=== PATIENT | male | born 1965 | race African-American/Black ===

== ENCOUNTER 2018-05-05 19:58 | Emergency (ER) | payer MEDICAID ==
[~2018-05-05] VITALS: Ht 162.6 cm; Wt 50.0 kg
[2018-05-05] MEDS ORDERED: LEVETIRACETAM 500MG PREMIX 100 ML IV ONE (21:15)
[2018-05-05 23:00] LABS: BASOPHILS % 0.7 % (0.0-2.0); EOSINOPHILS % 0.5 % (0.0-5.0); HEMATOCRIT. 39.3 % (42.0-52.0); HEMOGLOBIN. 12.9 g/dL (14.0-18.0); LYMPHOCYTES % 14.3 % (20.0-50.0); MEAN CORPUSCULAR HEMOGLOBIN 26.7 pg (28.0-32.0); MEAN CORPUSCULAR VOLUME 81.4 fL (80.0-94.0); MONOCYTES % 5.1 % (2.0-8.0); NEUTROPHILS % 79.4 % (40.0-76.0); PLATELET 203 x1000/uL (130-400); RED BLOOD CELL COUNT 4.83 mill/uL (4.7-6.1); RED CELL DISTRIBUTION WIDTH 14.1 % (11.6-14.6)
[2018-05-05 23:04] LABS: CHLORIDE 109 mEq/L (98-107)
[2018-05-06 00:02] VITALS: BP 101/62
== END 2018-05-06 00:03 | disposition home or self-care (01) ==
LOC: ER 19:58
DX: G40.909 Epilepsy, unspecified, not intractable, without status epilepticus (principal); R03.0 Elevated blood-pressure reading, without diagnosis of hypertension
CPT/HCPCS: 36415; 70450; 80053; 85025; 93005; 96365; 99284; J1953; Z7610

== ENCOUNTER 2021-07-11 21:15 | Emergency (ER) | payer MEDICAID ==
[~2021-07-11] VITALS: Ht 170.2 cm; Wt 70.0 kg
[2021-07-11] MEDS ORDERED: LEVETIRACETAM 1000MG PREMIX 100 ML IV ONE (22:30)
[2021-07-11] MEDS ORDERED: MORPHINE SULFATE 4 MG/ML CPJ (NOT FOR IM USE) IV ONE (22:30)
[2021-07-11] MEDS ORDERED: ONDANSETRON HCL 4MG/2ML INJ IV ONE (22:30)
[2021-07-11] MEDS ORDERED: FAMOTIDINE 20MG/2ML VIAL IV ONE (22:30)
[2021-07-11 22:46] LABS: BASOPHILS % 0.8 % (0.0-2.0); EOSINOPHILS % 1.4 % (0.0-5.0); HEMATOCRIT. 43.3 % (42.0-52.0); HEMOGLOBIN. 14.4 g/dL (14.0-18.0); LYMPHOCYTES % 20.2 % (20.0-50.0); MEAN CORPUSCULAR HEMOGLOBIN 27.3 pg (28.0-32.0); MEAN CORPUSCULAR VOLUME 82.3 fL (80.0-94.0); MEAN PLATELET VOLUME 7.5 fl (7.4-10.4); MONOCYTES % 8.4 % (2.0-8.0); NEUTROPHILS % 69.2 % (40.0-76.0); PLATELET 243 x1000/uL (130-400); RED BLOOD CELL COUNT 5.26 mill/uL (4.7-6.1); RED CELL DISTRIBUTION WIDTH 14.6 % (11.6-14.6)
[2021-07-11 22:54] LABS: CHLORIDE 108 mEq/L (98-107)
[2021-07-11 23:01] LABS: PROTHROMBIN TIME 10.5 sec (9.6-11.0)
[2021-07-11 23:23] VITALS: BP 129/80
[2021-07-12] MEDS ORDERED: IBUP-2028 MT (00:30)
[2021-07-12] MEDS ORDERED: TOPUD PO (00:30)
== END 2021-07-12 00:59 | disposition home or self-care (01) ==
LOC: ER 21:15
DX: A40.0 Sepsis due to streptococcus, group A (principal); K40.90 Unilateral inguinal hernia, without obstruction or gangrene, not specified as recurrent; R56.9 Unspecified convulsions; Z87.891 Personal history of nicotine dependence; Z90.49 Acquired absence of other specified parts of digestive tract
CPT/HCPCS: 36415; 74176; 80053; 83690; 85025; 85610; 93005; 96365; 96375; 99285; J1953; J2270; J2405; J3490